=== PATIENT | male | born 1955 | race Caucasian/White ===

== ENCOUNTER 2017-05-04 14:10 | Emergency (ER) | payer BC, OTHER ==
[~2017-05-04] VITALS: Ht 175.3 cm; Wt 81.6 kg
[~2017-05-04 14:10] MED LIST: ACHD5005 PO; ALBU8.5H4 IH; AMOX500C2 PO; AZTH250C PO; CTLP20T PO; EPIN0.3P3 IM; ESCT10T PO; FAMO20TA5 PO; NAPR-243 PO; PRCD5U PO; PRD20T PO; PRED20TA PO; SULF1TAB38 PO
[2017-05-04] MEDS ORDERED: FLUT1AER IH (14:30)
[2017-05-04] MEDS ORDERED: CITA20TA7 PO (14:31)
[2017-05-04] MEDS ORDERED: MONT10TA21 PO (14:31)
[2017-05-04] MEDS ORDERED: FLUT1BLS IH (14:31)
[2017-05-04] MEDS ORDERED: CETI10CA PO (14:31)
[2017-05-04] MEDS ORDERED: fentaNYL INJECTION 100 MCG/2 ML AMP IM STA (14:52)
--- NOTE | 2017-05-04 14:55 | ED Fall/Injury ---
General Chief Complaint: Trauma-Non Activation Stated Complaint: FALL,NECK,LT SHOULDER,LT HIP Nursing Triage Note: to ED 5 by wheelchair with reports of fall from ladder at home while trimming a tree. Patient reports that the limb hit the ladder and knocked it over. Patient reports landing on his left side, hitting his head. Patient reports head, neck, left shoulder, and left hip pain. Patient denies loss of consciousness. Denies being on blood thinning medications. Source: patient, spouse Exam Limitations: no limitations History of Present Illness Time seen by provider: 14:45 Initial Comments 62-year-old male patient presents to the emergency department with complaints of falling from a ladder at home while trimming a tree. States a tree limb hit the side of his ladder knocking over. Reports falling approximately 5 feet. Patient denies loss of consciousness or headache. Patient does complain of headache, neck pain, left shoulder pain, and left hip pain. Location Injury Occurred: home Occurred: just prior to arrival Injuries/Pain Location: head, neck, upper extremity (left shoulder), lower extremity (left hip) Loss of Consciousness: no loss of consciousness Modifying Factors: Worse With Movement Allergies and Home Medications Allergies Uncoded Allergies: BEESTING (Adverse Reaction, Unknown, SWELLING, 11/09/15) Home Medications Cetirizine HCl 10 Mg Capsule, 10 MG PO DAILY, (Reported) Citalopram Hydrobromide 20 Mg Tablet, 20 MG PO DAILY, (Reported) Epinephrine 0.3 Mg/0.3 Ml Pen.injctr, 0.3 MG IM PRN, #1 Prescribed by: DANIELLE PARKER on 03/29/15 0350 Fluticasone/Vilanterol 1 Each Blst.w.dev, 1 EACH IH DAILY, (Reported) Montelukast Sodium 10 Mg Tablet, 10 MG PO DAILY, (Reported) Orphenadrine Citrate 100 Mg Tablet.er, 100 MG PO BID PRN for SPASMS, #14 Ref 0 Prescribed by: AHSAN CUEVAS on 05/04/17 1600 Oxycodone HCl/Acetaminophen 1 Each Tablet, 1 EACH PO Q4H PRN for pain, #30 Ref 0 Prescribed by: AHSAN CUEVAS on 05/04/17 1935 Constitutional: No diaphoresis, No dizziness, No weakness Eyes: Denies Blurred Vision, Denies Drainage, Denies Decreased Acuity, Denies Photophobia, Denies Vision Changes Ears, Nose, Mouth, Throat: denies ear pain, denies ear discharge, denies nose pain, denies nose discharge, denies epistaxis, denies mouth pain, denies loose teeth, denies throat pain Respiratory: No cough, No short of breath, No stridor, No wheezing Cardiovascular: No chest pain, No palpitations, No syncope Gastrointestinal: No abdominal pain, No diarrhea, No nausea, No vomiting Genitourinary: no symptoms reported Musculoskeletal: see HPI, No back pain, joint pain, neck pain Skin: no symptoms reported Psychiatric/Neurological: Headache, Denies Numbness, Denies Paresthesia, Denies Seizure, Denies Tingling, Denies Weakness All Other Systems Reviewed Negative Unless Noted: Yes (Negative excepted noted.) Past Khnbwwe-Hjmjnx-Aptvni Hx Patient Social History Alcohol Use: Regular Use Number of Drinks Today: 1 Alcohol Beverage of Choice: Beer Recreational Drug Use: No Smoking Status: Never a Smoker 2nd Hand Smoke Exposure: No Recent Foreign Travel: No Contact w/Someone Who Travel: No Recent Infectious Disease Expo: No Recent Hopitalizations: No Physical Abuse: No Sexual Abuse: No Mistreated: No Fear: No Immunizations Up To Date Tetanus Booster (TDap): More than 5yrs Date of Influenza Vaccine: Jun 03, 2012 Seasonal Allergies Seasonal Allergies: Yes Surgeries History of Surgeries: Yes (SKIN GRAFT) Surgeries: Abdominal, Appendectomy Respiratory History of Respiratory Disorde: Yes Respiratory Disorders: COPD Currently Using CPAP: Yes Currently Using BIPAP: No Cardiovascular History of Cardiac Disorders: No Neurological History of Neurological Disord: No Reproductive System Hx Reproductive Disorders: No Gastrointestinal History of Gastrointestinal Di: Yes Gastrointestinal Disorders: Gastroesophageal Reflux, Hiatal Hernia Musculoskeletal History of Musculoskeletal Dis: No Endocrine History of Endocrine Disorders: No Cancer History of Cancer: No Psychosocial History of Psychiatric Problem: Yes Behavioral Health Disorders: Anxiety, Depression Suicide Risk Score: 0 Integumentary History of Skin or Integumenta: No Blood Transfusions History of Blood Disorders: No Reviewed Nursing Assessment Reviewed/Agree w Nursing PMH: Yes Family Medical History Significant Family History: Cancer, Diabetes Physical Exam Vital Signs Capillary Refill : Less Than 3 Seconds General Appearance: WD/WN, no apparent distress HEENT: PERRL/EOMI, normal ENT inspection, TMs normal, pharynx normal, other ( normocephalic, atraumatic.) Neck: supple, normal inspection, tender lateral, tender midline, No other (ROM not tested at the time of exam. Patient refusing cervical collar. States if we put one on, he will remove it.) Cardiovascular: normal peripheral pulses, regular rate, rhythm, no murmur Respiratory: chest non-tender (no evidence of ecchymosis, swelling, or deformity of the chest wall.), lungs clear, normal breath sounds, no respiratory distress, no accessory muscle use Peripheral Pulses: 2+ Carotid (R), 2+ Carotid (L), 2+ Dorsalis Pedis (R), 2+ Left Dors-Pedis (L), 2+ Radial Pulses (R), 2+ Radial Pulses (L) Gastrointestinal: normal bowel sounds, non tender, soft, no organomegaly, No distended, No other (no ecchymosis noted on the abdominal wall.) Back: normal inspection, no vertebral tenderness Extremities: no pedal edema, no calf tenderness, normal capillary refill, pelvis stable, other (left hip bony and soft tissue tenderness laterally without swelling or ecchymosis. left shoulder TTP with mild swelling.) Neurologic/Psychiatric: audio visual coordinator II-XII nml as tested, no motor/sensory deficits, alert, normal mood/affect, oriented x 3 Skin: normal color, warm/dry Progress/Results/Core Measures Results/Orders My Orders Orders - AHSAN CUEVAS PA Ct Head/Cervical Spine Wo (05/04/17 14:52) Chest 1 View, Ap/Pa Only (05/04/17 14:52) Shoulder, Left, 3 Views (05/04/17 14:52) Fentanyl Injection (Sublimaze Injection (05/04/17 14:52) Pelvis With Left Hip 2-3 Views (05/04/17 14:52) Morphine Injection (Morphine Injection (05/04/17 16:08) Orphenadrine Injection (Norflex Injectio (05/04/17 16:08) Dipht,Pertuss(Acell),Tet Adult (Boostrix (05/04/17 16:08) Ct Pelvis Wo (05/04/17 17:06) Methylnaltrexone Injection (Relistor Inj (05/04/17 19:45) Im/Sub-Q Injection Non-Ab Ed (05/04/17 ) Vaccine Administration Single (05/04/17 ) Vital Signs/I&O Blood Pressure Mean: 113 Diagnostic Imaging Diagonstic Imaging: CT Plain Films/CT/US/NM/MRI: c-spine, head Comments FINDINGS: Head CT: There is no evidence of acute cerebral infarct, intracranial hemorrhage, or gross mass effect. There is normal garcia-white matter distinction. The brain parenchymal volume appears appropriate for patient's age. There is no significant midline shift or herniation. There is no evidence of hydrocephalus. The basal cisterns are unremarkable. The skull, extracranial soft tissue, and orbits are unremarkable. The paranasal sinuses are unremarkable. Cervical spine CT: There is no acute cervical spine fracture or dislocation. There are small degenerative spurs, and moderate/ severely hypertrophic facet arthropathy (left side more than the right.) There is at least moderate left C3-C4 neural foraminal narrowing, moderate right C4-C5 neural foraminal narrowing, severe right C5-C6 neural foraminal narrowing, and moderate left C5-C6 neural foraminal narrowing. There is no significant bony central canal narrowing. There is no significant neck soft tissue abnormality. Visualized upper lung lebron are clear. IMPRESSION: 1: There is no evidence of acute intracranial process. 2: Cervical spine degenerative disease with no acute fracture or dislocation. Dictated by: Dictated on workstation # [id number] Reviewed: Reviewed by Me (radiology report reviewed by me) Diagonstic Imaging: Xray Plain Films/CT/US/NM/MRI: chest Comments Findings: Lungs/pleura: Lungs are clear. There is no pneumothorax. There is no pleural effusion. Mediastinum: Unremarkable. Pulmonary vasculature: Unremarkable. Heart: Unremarkable. Bones/extrathoracic soft tissue: Unremarkable. IMPRESSION: There is no radiographic evidence of acute cardiopulmonary process. Dictated by: Dictated on workstation # [id number] Reviewed: Reviewed by Me (radiology report reviewed by me) Diagonstic Imaging: Xray Plain Films/CT/US/NM/MRI: other (left shoulder) Comments Findings: There is no evidence of acute fracture or dislocation. There is minimal spurring of the inferior left glenoid rim. Otherwise, there is no other significant abnormality. Impression: 1: There is no acute fracture or dislocation. 2: Mild degenerative disease of the left shoulder. Dictated by: Dictated on workstation # [id number] Reviewed: Reviewed by Me (radiology report reviewed by me) Diagonstic Imaging: CT Plain Films/CT/US/NM/MRI: pelvis Comments FINDINGS: There is no evidence of dislocation of the hips. By CT imaging, there is no definitive demonstration of a proximal femoral fracture. However, subcapital femoral neck fractures can be occult by CT imaging and if the patient has continued symptomatology or pain with weightbearing, MRI of the left hip would be recommended. There is no diastasis of the pubic symphysis or of the SI joints. There is fusion across the SI joints. There also are moderate osteoarthritic changes of both hips. The visualized intrapelvic contents demonstrate no acute process. IMPRESSION: 1. There is no identified fracture or dislocation though subcapital nondisplaced femoral neck fractures can be occult even by CT. If there is continued pain and symptomatology or if the patient has pain with weightbearing, an MRI of the left hip would be recommended. Dictated by: Dictated on workstation # [id number] Reviewed: Reviewed by Me (radiology report reviewed by me) Diagonstic Imaging: Xray Plain Films/CT/US/NM/MRI: pelvis Comments FINDINGS: There is moderate degenerative disease of the SI joints bilaterally with sclerosis both medially and laterally. The pubic ramus is in good alignment. There are no pelvic fractures. The femoral heads are in normal articulation bilaterally with moderate degenerative changes. Frog-leg view shows smooth articulating surface of the femoral head without fracture. IMPRESSION: Degenerative arthritic changes with no acute abnormalities. Dictated by: Dictated on workstation # [id number] Reviewed: Reviewed by Me (radiology report reviewed by me) Departure Communication (Admissions) Progress Notes Patient seen and evaluated. ROM of the cervical spine not tested at the time of exam. Patient refusing cervical collar. States if we put a c/collar on, he will remove it. All risks and possible complications associated with not wearing the cervical collar were discussed with the patient. All questions answered. Patient verbalizes understanding and continue to refuse cervical collar placement. I have instructed the patient to avoid moving the head/neck. Dr. Lloyd notified of patient's refusal to wear the cervical collar. 1356 all diagnostic findings were discussed with the patient. Patient was given 100 g of fentanyl with improvement in symptoms. Plan for discharge to home. All return precautions were discussed with the patient as described in the discharge instructions of this report. Patient voices understanding and agrees with the treatment plan. Patient case discussed with Dr. Lloyd, he agrees with the plan of care. Impression Impression: Primary Impression: Minor head injury without loss of consciousness Qualified Codes: S09.90XA - Unspecified injury of head, initial encounter Additional Impressions: Sprain of cervical neck Qualified Codes: S13.9XXA - Sprain of joints and ligaments of unspecified parts of neck, initial encounter Contusion of left shoulder Qualified Codes: S40.012A - Contusion of left shoulder, initial encounter Contusion of left hip Qualified Codes: S70.02XA - Contusion of left hip, initial encounter Disposition: HOME, SELF-CARE Condition: Improved Departure-Patient Inst. Decision time for Depature: 15:58 Referrals: EDEN PINEDA MD (PCP/Family) Primary Care Physician ELISA HAYES MD Patient Instructions: Contusion (DC), Minor Head Injury (DC), Neck Sprain (DC) Add. Discharge Instructions: All discharge instructions reviewed with patient and/or family. Voiced understanding. Medications as instructed. No ibuprofen or Aleve for 24 hours, then [id number] ibuprofen 800 mg by mouth every 8 hours as needed for pain. Ice packs for 20 minute intervals as needed for pain for 2-3 days. Then use a heating pad or pack if needed for pain. No heavy lifting, pushing, pulling, twisting, bending, climbing, or activities which may result and head injury or 7 days after headache resolves. Follow-up with Dr. Pineda next week as an outpatient for recheck. Return to the emergency department for worsened pain, headache, dizziness, changes in vision, slurred speech, changes in behavior, neck pain, back pain, numbness, weakness, seizure, chest pain, shortness of air, vomiting, or any other concerns. Scripts Oxycodone HCl/Acetaminophen (Oxycodon-Acetaminophen 7.5-325) 1 Each Tablet 1 EACH PO Q4H Y for pain, #30 TAB 0 Refills Prov: AHSAN CUEVAS 05/04/17 Orphenadrine Citrate (Orphenadrine Citrate) 100 Mg Tablet.er 100 MG PO BID Y for SPASMS, #14 TAB 0 Refills Prov: AHSAN CUEVAS 05/04/17 AHSAN CUEVAS May 04, 2017 14:55
--- NOTE | 2017-05-04 15:37 | Diagnostic Imaging Report ---
Clinical indication: Patient fell from ladder while trimming tree. Exam: X-ray of the left shoulder, 3 views. Comparison: None. Findings: There is no evidence of acute fracture or dislocation. There is minimal spurring of the inferior left glenoid rim. Otherwise, there is no other significant abnormality. Impression: 1: There is no acute fracture or dislocation. 2: Mild degenerative disease of the left shoulder. Dictated by: Dictated on workstation # [id number]
--- NOTE | 2017-05-04 15:38 | Diagnostic Imaging Report ---
CLINICAL INDICATION: Patient fell from a ladder cutting a tree. EXAM: Head CT without IV contrast. Axial CT scan of the cervical spine with sagittal and coronal reformations. COMPARISON: Head CT without IV contrast dated 11/04/2012. FINDINGS: Head CT: There is no evidence of acute cerebral infarct, intracranial hemorrhage, or gross mass effect. There is normal garcia-white matter distinction. The brain parenchymal volume appears appropriate for patient's age. There is no significant midline shift or herniation. There is no evidence of hydrocephalus. The basal cisterns are unremarkable. The skull, extracranial soft tissue, and orbits are unremarkable. The paranasal sinuses are unremarkable. Cervical spine CT: There is no acute cervical spine fracture or dislocation. There are small degenerative spurs, and moderate/ severely hypertrophic facet arthropathy (left side more than the right.) There is at least moderate left C3-C4 neural foraminal narrowing, moderate right C4-C5 neural foraminal narrowing, severe right C5-C6 neural foraminal narrowing, and moderate left C5-C6 neural foraminal narrowing. There is no significant bony central canal narrowing. There is no significant neck soft tissue abnormality. Visualized upper lung lebron are clear. IMPRESSION: 1: There is no evidence of acute intracranial process. 2: Cervical spine degenerative disease with no acute fracture or dislocation. Dictated by: Dictated on workstation # [id number]
--- NOTE | 2017-05-04 15:40 | Diagnostic Imaging Report ---
CLINICAL INDICATION: Patient is status post fall from ladder while cutting tree. EXAM: Portable chest x-ray upright view. COMPARISONS: Chest x-ray dated 07/31/2016. Findings: Lungs/pleura: Lungs are clear. There is no pneumothorax. There is no pleural effusion. Mediastinum: Unremarkable. Pulmonary vasculature: Unremarkable. Heart: Unremarkable. Bones/extrathoracic soft tissue: Unremarkable. IMPRESSION: There is no radiographic evidence of acute cardiopulmonary process. Dictated by: Dictated on workstation # [id number]
--- NOTE | 2017-05-04 15:43 | Diagnostic Imaging Report ---
INDICATION: Fall from ladder. EXAM: AP pelvis and frog-leg view of the left hip. FINDINGS: There is moderate degenerative disease of the SI joints bilaterally with sclerosis both medially and laterally. The pubic ramus is in good alignment. There are no pelvic fractures. The femoral heads are in normal articulation bilaterally with moderate degenerative changes. Frog-leg view shows smooth articulating surface of the femoral head without fracture. IMPRESSION: Degenerative arthritic changes with no acute abnormalities. Dictated by: Dictated on workstation # [id number]
[2017-05-04] MEDS ORDERED: ORPH100T PO (16:00)
[2017-05-04] MEDS ORDERED: HYDR-3816 PO (16:00)
[2017-05-04] MEDS ORDERED: ORPHENADRINE 60 MG/2 ML (NORFLEX) AMP IM STA (16:08)
[2017-05-04] MEDS ORDERED: morphine INJ 10 MG/ML 1ML (SYR OR VIAL) IM STA (16:08)
[2017-05-04] MEDS ORDERED: TETANUS,DIPTH,PERTUSS P/F (BOOSTRIX) 0.5 ML VIAL IM STA (16:08)
--- NOTE | 2017-05-04 18:13 | Diagnostic Imaging Report ---
PROCEDURE: CT pelvis without contrast. TECHNIQUE: Multiple contiguous axial images were obtained through the pelvis without the use of intravenous contrast. Sagittal and coronal reformations were performed. INDICATION: Fall from ladder. Left hip pain. FINDINGS: There is no evidence of dislocation of the hips. By CT imaging, there is no definitive demonstration of a proximal femoral fracture. However, subcapital femoral neck fractures can be occult by CT imaging and if the patient has continued symptomatology or pain with weightbearing, MRI of the left hip would be recommended. There is no diastasis of the pubic symphysis or of the SI joints. There is fusion across the SI joints. There also are moderate osteoarthritic changes of both hips. The visualized intrapelvic contents demonstrate no acute process. IMPRESSION: 1. There is no identified fracture or dislocation though subcapital nondisplaced femoral neck fractures can be occult even by CT. If there is continued pain and symptomatology or if the patient has pain with weightbearing, an MRI of the left hip would be recommended. Dictated by: Dictated on workstation # [id number]
[2017-05-04] MEDS ORDERED: OXYC-464 PO (19:35)
[2017-05-04] MEDS ORDERED: METHYLNALTREXONE 12 MG/0.6 ML (RELISTOR) VIAL SQ ONE (19:45)
[2017-05-04 19:52] VITALS: BP 144/90
== END 2017-05-04 19:52 | disposition home or self-care (01) ==
LOC: EDUNIT# 14:10 → ER 14:12
DX: S09.90XA Unspecified injury of head, initial encounter (principal); S13.4XXA Sprain of ligaments of cervical spine, initial encounter; S40.012A Contusion of left shoulder, initial encounter; S70.02XA Contusion of left hip, initial encounter; J44.9 Chronic obstructive pulmonary disease, unspecified; K21.9 Gastro-esophageal reflux disease without esophagitis; F41.9 Anxiety disorder, unspecified; F32.9 Major depressive disorder, single episode, unspecified; Z80.9 Family history of malignant neoplasm, unspecified; Z90.49 Acquired absence of other specified parts of digestive tract; W11.XXXA Fall on and from ladder, initial encounter; Y93.H2 Activity, gardening and landscaping
CPT/HCPCS: 70450; 71010; 72125; 72192; 73030; 90471; 90715; 96372; 99284

== ENCOUNTER 2017-09-25 05:38 | Outpatient (CLI) | payer BC ==
[~2017-09-25] VITALS: Ht 175.3 cm; Wt 81.6 kg
[~2017-09-25 05:38] MED LIST changes: +CETI10CA PO; +CITA20TA7 PO; +FLUT1AER IH; +FLUT1BLS IH; +HYDR-3816 PO; +MONT10TA21 PO; +ORPH100T PO; +OXYC-464 PO
[2017-09-25] MEDS ORDERED: LOSA50TA36 PO (10:37)
== END 2017-09-25 10:39 ==
LOC: PREOP 05:38
PROVIDERS: ATTEND Surgery
DX: Z01.818 Encounter for other preprocedural examination (principal); Z12.11 Encounter for screening for malignant neoplasm of colon

== ENCOUNTER 2017-10-02 06:55 | Day surgery (SDC) | payer BC ==
[~2017-10-02] VITALS: Ht 175.3 cm; Wt 81.6 kg
[~2017-10-02 06:55] MED LIST changes: +LOSA50TA36 PO
[2017-10-02] MEDS ORDERED: LACTATED RINGERS 1,000 ML IV STA (07:05)
[2017-10-02] MEDS ORDERED: proPOfol 200 MG/20 ML (DIPRIVAN) VIAL IV ONE (07:16)
[2017-10-02] MEDS ORDERED: MIDAZOLAM 2 MG/2 ML (VERSED) VIAL ONE (07:16)
[2017-10-02 07:31] VITALS: BP 135/87
[2017-10-02] MEDS ORDERED: FAMO-119 PO (07:52)
--- NOTE | 2017-10-02 08:08 | Progress Note-Pre Operative ---
Pre-Operative Progress Note H&P Reviewed The H&P was reviewed, patient examined and no changes noted. Date Seen by Provider: Oct 02, 2017 Time Seen by Provider: 08:08 Date H&P Reviewed: Oct 02, 2017 Time H&P Reviewed: 08:08 Pre-Operative Diagnosis: screening colonoscopy JACOB DIAZ DO Oct 02, 2017 08:08
[2017-10-02] MEDS ORDERED: fentaNYL INJECTION 100 MCG/2 ML AMP ONE (08:14)
--- NOTE | 2017-10-02 08:41 | Progress Note-Post Operative ---
Post-Operative Progess Note Surgeon (s)/Network Systems Consultant (s) Surgeon JACOB DIAZ DO Network Systems Consultant: na Pre-Operative Diagnosis screening colonoscopy Post-Operative Diagnosis cecal polyp Procedure & Operative Findings Date of Procedure 10/02/17 Procedure Performed/Findings colonoscopy with hot bx polypectomy Anesthesia Type per [facility] Estimated Blood Loss Estimated blood loss (mL): none Specimens/Packing Specimens Removed cecal polyp JACOB DIAZ DO Oct 02, 2017 08:41
--- NOTE | 2017-10-02 08:42 | Discharge Inst-Simple/Standard ---
Discharge Inst-Standard Patient Instructions/Follow Up Plan of Care/Instructions/FU: 2 weeks Noemi Activity as Tolerated: Yes Discharge Diet: Regular Diet JACOB DIAZ DO Oct 02, 2017 08:42
[2017-10-02 08:50] VITALS: BP 128/86
[2017-10-02 09:30] VITALS: BP 138/84
[2017-10-02 09:45] VITALS: BP 138/84
--- NOTE | 2017-10-02 13:57 | OPERATIVE REPORT ---
DATE OF SERVICE: 10/02/2017 PREOPERATIVE DIAGNOSIS: Screening colonoscopy. POSTOPERATIVE DIAGNOSIS: Cecal polyp. PROCEDURE: Colonoscopy with hot biopsy polypectomy. SURGEON: Jacob Franklin DO ANESTHESIA: Per MDA. ESTIMATED BLOOD LOSS: None. COMPLICATIONS: None. INDICATIONS: The patient is a 62-year-old male due for screening colonoscopy. He understands risks and benefits of procedure and wished to proceed with procedure. Consent was signed and on the chart. DESCRIPTION OF PROCEDURE: The patient was taken to the endoscopy suite, placed in left lateral recumbent position. Timeout was performed. Digital rectal exam was performed and there were no palpable polyps, masses or ulcerations. Scope was inserted into the rectum and advanced all the way to the cecum with minimal difficulty. Prep was adequate. The terminal ileum was intubated. There were no polyps, mass or ulcerations. Normal appearance. The scope was withdrawn back into the cecum. There was a small polyp within the cecum, which hot biopsy polypectomy was performed. Scope was continued slowly retracted back. There were no polyps, mass or ulcerations within the ascending, transverse, descending and sigmoid colon. Once in the rectum, scope was also retroflexed noting no other pathology. Scope was returned to its normal position, slowly withdrawn until completely removed. The patient tolerated procedure well without any complications. He was taken to the recovery room in stable condition. RECOMMENDATIONS: The patient will follow up in two weeks to discuss pathology results. The patient will need repeat colonoscopy in 5 years. If he has any problems prior to that, he should be reevaluated at that time. Job ID: [id number] DocumentID: [id number] Dictated Date: 10/02/2017 08:44:28 Label Pinker Date: 10/02/2017 13:56:23 Dictated By: JACOB FRANKLIN DO
== END 2017-10-02 09:45 | disposition home or self-care (01) ==
LOC: ENDO 06:55
PROVIDERS: ATTEND Surgery
DX: Z12.11 Encounter for screening for malignant neoplasm of colon (principal); D12.0 Benign neoplasm of cecum; I10 Essential (primary) hypertension; J45.909 Unspecified asthma, uncomplicated; G47.33 Obstructive sleep apnea (adult) (pediatric); K21.9 Gastro-esophageal reflux disease without esophagitis; K44.9 Diaphragmatic hernia without obstruction or gangrene; Z79.899 Other long term (current) drug therapy

== ENCOUNTER → 2021-02-15 | Outpatient (CLI) | payer BC ==
[~2021-02-15] MED LIST changes: -CITA20TA7 PO; +CITA20TA9 PO; +FAMO-119 PO; +HYDR-34 PO; -HYDR-3816 PO; -LOSA50TA36 PO; +LOSA50TA63 PO
== END ==
LOC: RT 15:30
PROVIDERS: ATTEND Nurse Practitioner Family
DX: J42 Unspecified chronic bronchitis (principal)
CPT/HCPCS: 94060; 94726; 94729

== ENCOUNTER → 2022-01-21 | Outpatient (CLI) | payer BC ==
[~2022-01-21] MED LIST changes: -OXYC-464 PO; +OXYC1TAB15 PO
[2022-01-21 13:16] LABS: BASOPHILS % (AUTO) 1 % (0-10); EOSINOPHILS # (AUTO) 0.1 10^3/uL (0.0-0.3); EOSINOPHILS % (AUTO) 2 % (0-10); HEMATOCRIT 46 % (40-54); HEMOGLOBIN 16.1 g/dL (13.3-17.7); LYMPHOCYTES # (AUTO) 2.1 10^3/uL (1.0-4.0); LYMPHOCYTES % (AUTO) 24 % (12-44); MEAN CORPUSCULAR HEMOGLOBIN 32 pg (25-34); MEAN CORPUSCULAR HGB CONC 35 g/dL (32-36); MEAN CORPUSCULAR VOLUME 91 fL (80-99); MEAN PLATELET VOLUME 9.5 fL (9.0-12.2); MONOCYTES % (AUTO) 11 % (0-12); NEUTROPHILS # (AUTO) 5.4 10^3/uL (1.8-7.8); NEUTROPHILS % (AUTO) 62 % (42-75); PLATELET COUNT 270 10^3/uL (130-400); WHITE BLOOD COUNT 8.8 10^3/uL (4.3-11.0)
[2022-01-21 13:20] LABS: ALBUMIN 4.4 GM/DL (3.2-4.5); POTASSIUM 4.4 MMOL/L (3.6-5.0)
[2022-01-21 13:21] LABS: CALCIUM 9.5 MG/DL (8.5-10.1)
[2022-01-21 13:22] LABS: TOTAL PROTEIN 7.8 GM/DL (6.4-8.2)
[2022-01-21 13:24] LABS: BILIRUBIN,TOTAL 0.8 MG/DL (0.1-1.0)
[2022-01-21 13:26] LABS: CREATININE SERUM 0.85 MG/DL (0.60-1.30)
[2022-01-21 13:29] LABS: URIC ACID 6.8 MG/DL (2.6-7.2)
== END ==
LOC: LAB 12:47
PROVIDERS: ATTEND Family Medicine
DX: L03.039 Cellulitis of unspecified toe (principal); M10.9 Gout, unspecified
CPT/HCPCS: 36415; 80053; 84550; 85025

== ENCOUNTER 2022-10-18 05:33 | Outpatient (CLI) | payer BC ==
[~2022-10-18] VITALS: Ht 175.3 cm; Wt 86.7 kg
[2022-10-20] MEDS ORDERED: RT-ALBUINH INH (12:01)
[2022-10-20] MEDS ORDERED: MULT-593 PO (12:01)
== END 2022-10-20 12:04 | disposition home or self-care (01) ==
LOC: PREOP 05:33
PROVIDERS: ATTEND Surgery
DX: Z01.818 Encounter for other preprocedural examination (principal)

== ENCOUNTER 2022-10-31 07:20 | Day surgery (SDC) | payer BC ==
[~2022-10-31] VITALS: Ht 175 cm; Wt 86.7 kg
[~2022-10-31 07:20] MED LIST changes: +MULT-593 PO; +RT-ALBUINH INH
[2022-10-31] MEDS ORDERED: LACTATED RINGERS 1,000 ML IV STA (07:32)
[2022-10-31 07:43] VITALS: BP 126/82
[2022-10-31] MEDS ORDERED: HURRICAINE EXT TUBE (BENZOCAINE) XX PRN (07:45)
[2022-10-31] MEDS ORDERED: PROPOFOL INJECTION 50 ML IV ONE (08:19)
[2022-10-31] MEDS ORDERED: MIDAZOLAM 2 MG/2 ML (VERSED) VIAL ONE (08:19)
--- NOTE | 2022-10-31 08:48 | Discharge Inst-Simple/Standard ---
Discharge Inst-Standard Patient Instructions/Follow Up Plan of Care/Instructions/FU: 2 weeks warner Activity as Tolerated: Yes Discharge Diet: Regular Diet (high fiber) JACOB DIAZ DO Oct 31, 2022 08:48
--- NOTE | 2022-10-31 08:50 | Progress Note-Post Operative ---
Post-Operative Progess Note Surgeon (s)/Customer Acquisition Specialist (s) Surgeon JACOB DIAZ DO Customer Acquisition Specialist: na Pre-Operative Diagnosis hx polyps, gerd Post-Operative Diagnosis normal egd, normal colon Procedure & Operative Findings Date of Procedure 10/31/22 Procedure Performed/Findings egd c biopsies, colonoscopy Anesthesia Type per embalmer apprentice Estimated Blood Loss Estimated blood loss (mL): none Specimens/Packing Specimens Removed antrum, ge JACOB DIAZ DO Oct 31, 2022 08:50
[2022-10-31 08:53] VITALS: BP 89/56
[2022-10-31 08:58] VITALS: BP 105/72
[2022-10-31 09:05] VITALS: BP 105/72
[2022-10-31 09:53] VITALS: BP 105/72
--- NOTE | 2022-10-31 11:28 | Anesthesia-General Post-Op ---
MAC Patient Condition Mental Status/LOC: Same as Preop Cardiovascular: Satisfactory Nausea/Vomiting: Absent Respiratory: Satisfactory Pain: Controlled Complications: Absent Post Op Complications Complications None Follow Up Care/Instructions Patient Instructions None needed. Anesthesiology Discharge Order Discharge Order Patient is doing well, no complaints, stable vital signs, no apparent adverse anesthesia problems. No complications reported per nursing. DANIEL LOPEZ CRNA Oct 31, 2022 11:28
--- NOTE | 2022-10-31 12:01 | OPERATIVE REPORT ---
DATE OF SERVICE: 10/31/2022 PREOPERATIVE DIAGNOSIS: History of polyps, GERD. POSTOPERATIVE DIAGNOSIS: Normal EGD, normal colon. PROCEDURE: EGD with biopsies, colonoscopy. SURGEON: Jacob Franklin DO ANESTHESIA: Per [employer]. ESTIMATED BLOOD LOSS: None. COMPLICATIONS: None. INDICATIONS: The patient is a 67-year-old male with history of polyps and GERD, chronic gastritis symptoms. He understands risks and benefits of procedure and wishes to proceed. Consent was signed in chart. DESCRIPTION OF PROCEDURE: The patient was taken to the endoscopy suite, placed in left lateral recumbent position. Timeout was performed. Scope was inserted in the mouth, down the esophagus, stomach and the duodenum without difficulty. There were no polyps, masses or ulcerations within the duodenum. Scope was then slowly retracted back into the stomach where it was further insufflated. No polyps, masses or ulcerations. Biopsy of the antrum was obtained. Scope was retroflexed noting no other pathology. Scope was returned to its normal position, slowly withdrawn until the distal esophagus. Biopsy of GE junction was obtained. No polyps, masses or ulcerations. Questionable reflux esophagitis. Scope was slowly retracted back until completely removed, noting no other pathology. Digital rectal exam was performed. No palpable polyps, masses or ulcerations. Scope was inserted in the rectum, advanced all the way to the cecum with minimal difficulty. Prep was adequate. Scope was then slowly retracted back. No polyps, masses or ulcerations in the cecum, ascending, transverse, descending and sigmoid colon. Once in the rectum, scope was retroflexed noting no other pathology. Scope was returned to its normal position, slowly withdrawn until completely removed. The patient tolerated the procedure well without complications, taken to recovery room in stable condition. RECOMMENDATIONS: The patient will need repeat colonoscopy in 5 years due to history of polyps. We will follow up in the office in 2 weeks to discuss pathology results and see how symptoms are doing. We will continue on Pepcid. Consider changing to PPI if symptoms not improve. Job ID: [id number] DocumentID: [id number] Dictated Date: 10/31/2022 08:52:05 Cat Tender Date: 10/31/2022 11:59:00 Dictated By: JACOB FRANKLIN DO
== END 2022-10-31 09:40 | disposition home or self-care (01) ==
LOC: ENDO 07:20
PROVIDERS: ATTEND Surgery
DX: Z12.11 Encounter for screening for malignant neoplasm of colon (principal); K21.9 Gastro-esophageal reflux disease without esophagitis; K29.50 Unspecified chronic gastritis without bleeding; G47.33 Obstructive sleep apnea (adult) (pediatric); Z86.010 Personal history of colon polyps; Z79.899 Other long term (current) drug therapy